=== PATIENT | male | born 1990 | race Caucasian/White ===

== ENCOUNTER 2021-02-05 11:02 | Emergency (ER) | payer OTHER ==
[~2021-02-05] VITALS: Ht 175.3 cm; Wt 77.1 kg
[~2021-02-05 11:02] MED LIST: ADDERALL; ALBU.083IS IH; ALBU90I INH; ANTIBIODIC; COUGH SYRUP; HYDACE5 PO; SUDOGEST
[2021-02-05] MEDS ORDERED: SULTRIDS PO (13:06)
== END 2021-02-05 13:17 | disposition home or self-care (01) ==
LOC: ER 11:02
DX: L02.414 Cutaneous abscess of left upper limb (principal); Z88.0 Allergy status to penicillin; Z87.891 Personal history of nicotine dependence; Z79.899 Other long term (current) drug therapy
CPT/HCPCS: 10061; 99283-25; A9270

== ENCOUNTER 2021-05-11 08:54 | Emergency (ER) | payer OTHER ==
[~2021-05-11] VITALS: Ht 175.3 cm; Wt 77.1 kg
[~2021-05-11 08:54] MED LIST changes: +SULTRIDS PO
[2021-05-11] MEDS ORDERED: Ultram50 MG PO (11:13)
== END 2021-05-11 11:24 | disposition home or self-care (01) ==
LOC: ER 08:54
DX: S20.212A Contusion of left front wall of thorax, initial encounter (principal); S90.31XA Contusion of right foot, initial encounter; Z88.0 Allergy status to penicillin; Z87.891 Personal history of nicotine dependence; Y04.2XXA Assault by strike against or bumped into by another person, initial encounter
CPT/HCPCS: 71046; 73630; 96372; 99284-25; J1885

== ENCOUNTER 2024-08-12 17:40 | Emergency (ER) | payer OTHER ==
[~2024-08-12] VITALS: Ht 177.8 cm; Wt 77.1 kg
[~2024-08-12 17:40] MED LIST changes: +Ultram50 MG PO
[2024-08-12 17:48] VITALS: BP 130/80
[2024-08-12] MEDS ORDERED: RX Prepack 6 Tabs Oxycodone 5mg UD ONE (18:55)
== END 2024-08-12 19:15 | disposition home or self-care (01) ==
LOC: ER 17:40
DX: S52.501A Unspecified fracture of the lower end of right radius, initial encounter for closed fracture (principal); S52.614A Nondisplaced fracture of right ulna styloid process, initial encounter for closed fracture; J45.909 Unspecified asthma, uncomplicated; V23.49XA Other motorcycle driver injured in collision with car, pick-up truck or van in traffic accident, initial encounter; Z87.891 Personal history of nicotine dependence; Z88.0 Allergy status to penicillin
CPT/HCPCS: 29125; 73110; 99283-25; A9270

== ENCOUNTER 2024-08-25 12:16 | Emergency (ER) | payer OTHER ==
[~2024-08-25] VITALS: Ht 177.8 cm; Wt 77.1 kg
[2024-08-25 12:28] VITALS: BP 128/76
== END 2024-08-25 14:18 | disposition left against medical advice (07) ==
LOC: ER 12:16
DX: S52.571D Other intraarticular fracture of lower end of right radius, subsequent encounter for closed fracture with routine healing (principal); X58.XXXD Exposure to other specified factors, subsequent encounter; J45.909 Unspecified asthma, uncomplicated; Z88.0 Allergy status to penicillin; Z87.891 Personal history of nicotine dependence; Z91.198 Patient's noncompliance with other medical treatment and regimen for other reason
CPT/HCPCS: 73110; 99283-25

== ENCOUNTER 2025-05-11 18:31 | Emergency (ER) | payer OTHER ==
[~2025-05-11] VITALS: Ht 175.3 cm; Wt 72.6 kg
[2025-05-11 18:40] VITALS: BP 136/85
[2025-05-11] MEDS ORDERED: Albuterol 2.5 MG/3 ML VIAL INH SCH (18:45)
[2025-05-11] MEDS ORDERED: Ipratropium Bromide INH 0.02% 0.5 mg/2.5ML Vial INH SCH (18:45)
[2025-05-11 19:44] LABS: Influenza A, PCR NEGATIVE (NEGATIVE); Influenza B, PCR NEGATIVE (NEGATIVE); Resp Syncytial Virus, PCR NEGATIVE (NEGATIVE); SARS-Cov-2 (COVID-19) PCR, MMC NEGATIVE (NEGATIVE)
== END 2025-05-11 22:49 | disposition left against medical advice (07) ==
LOC: ER 18:31
PROVIDERS: Physician Assistant
DX: R05.9 Cough, unspecified (principal); Z53.21 Procedure and treatment not carried out due to patient leaving prior to being seen by health care provider
CPT/HCPCS: 71046; 73130; 87637; 99282-25

== ENCOUNTER 2025-05-13 18:42 | Emergency (ER) | payer OTHER ==
[~2025-05-13] VITALS: Ht 175.3 cm; Wt 70.3 kg
[2025-05-13] MEDS ORDERED: Albuterol 2.5 MG/3 ML VIAL INH SCH (19:35)
[2025-05-13] MEDS ORDERED: NS 1,000 ML IV SCH (19:35)
[2025-05-13] MEDS ORDERED: Ketorolac Tromethamine 15mg Vial IV ONE (20:40)
[2025-05-13 21:00] VITALS: BP 109/67
[2025-05-13 21:00] LABS: BASOPHILS ABSOLUTE AUTO 0.01 K/mm3 (0.00-0.23); BASOPHILS PERCENT AUTO 0 % (0-2); EOSINOPHILS ABSOLUTE AUTO 0.07 K/mm3 (0.00-0.68); EOSINOPHILS PERCENT AUTO 1 % (0-6); Hematocrit 41.9 % (37.0-53.0); Hemoglobin 14.0 g/dL (13.5-17.5); IMMATURE GRAN ABSOLUTE AUTO 0.04 K/mm3 (0.00-0.10); IMMATURE GRAN PERCENT AUTO 1 % (0-1); LYMPHOCYTES ABSOLUTE AUTO 1.95 K/mm3 (0.84-5.20); LYMPHOCYTES PERCENT AUTO 25 % (21-46); MONOCYTES ABSOLUTE AUTO 0.43 K/mm3 (0.16-1.47); MONOCYTES PERCENT AUTO 6 % (4-13); Mean Corpuscular HGB Conc 33.4 g/dL (31.5-36.5); Mean Corpuscular Volume 81 fL (80-100); NEUTROPHILS ABSOLUTE AUTO 5.28 K/mm3 (1.96-9.15); NEUTROPHILS PERCENT AUTO 68 % (41-73); NRBC ABSOLUTE 0.00 K/mm3 (0.00-0.02); NRBC Auto 0.0 /100 WBC (0.0-0.2); Platelet Count 336 K/mm3 (150-400); RDW Coefficient Variation 14.6 % (11.7-14.2); RDW Standard Deviation 43.8 fL (35.1-46.3)
[2025-05-13 21:16] LABS: Alanine Aminotransfer (ALT/SGP 27.0 U/L (12-78); Albumin, Blood 2.9 g/dL (3.4-5.0); Albumin/Globulin Ratio 0.7 (0.8-1.8); Anion Gap 11.0 mmol/L (3-11); Aspartate Aminotrans (AST/SGOT 21.0 U/L (12-37); Bilirubin, Total 0.2 mg/dL (0.1-1.0); Blood Urea Nitrogen 15.0 mg/dL (8-24); CO2, Blood 25.0 mmol/L (21-32); Calcium, Blood 8.6 mg/dL (8.5-10.1); Chloride, Blood 105.0 mmol/L (98-108); Creatinine, Blood 1.11 mg/dL (0.60-1.20); Globulin, Blood 4.1 g/dL (2.2-4.0); Glucose, Blood 115.0 mg/dL (70-99); Potassium, Blood 3.6 mmol/L (3.5-5.5); Sodium, Blood 137.0 mmol/L (136-145); Total Protein, Blood 7.0 g/dL (6.4-8.2)
[2025-05-13] MEDS ORDERED: RX Prepack Albuterol 1 PREPACK/6.7 GM INH UD ONE (21:35)
[2025-05-13] MEDS ORDERED: IBUP400 PO (22:07)
== END 2025-05-13 22:12 | disposition home or self-care (01) ==
LOC: ER 18:42
PROVIDERS: Student in an Organized Health Care Education/Training Program
DX: S62.336A Displaced fracture of neck of fifth metacarpal bone, right hand, initial encounter for closed fracture (principal); J45.901 Unspecified asthma with (acute) exacerbation; X58.XXXA Exposure to other specified factors, initial encounter; Z88.0 Allergy status to penicillin; Z87.891 Personal history of nicotine dependence
CPT/HCPCS: 29125; 80053; 85025; 96361; 96374-59; 99283-25; A9270; J1885; J7030

== ENCOUNTER 2025-05-22 14:51 | Emergency (ER) | payer OTHER ==
[~2025-05-22] VITALS: Ht 175.3 cm; Wt 72.6 kg
[~2025-05-22 14:51] MED LIST changes: +IBUP400 PO
[2025-05-22 14:55] VITALS: BP 122/78
[2025-05-22] MEDS ORDERED: Ketorolac Tromethamine 15mg Vial IM ONE (15:50)
[2025-05-22] MEDS ORDERED: AZIT250 PO (16:56)
[2025-05-22] MEDS ORDERED: LORCET PLUS PO (16:56)
[2025-05-22] MEDS ORDERED: IBUP800 PO (16:56)
== END 2025-05-22 17:09 | disposition home or self-care (01) ==
LOC: ER 14:51
DX: S62.112A Displaced fracture of triquetrum [cuneiform] bone, left wrist, initial encounter for closed fracture (principal); S62.142A Displaced fracture of body of hamate [unciform] bone, left wrist, initial encounter for closed fracture; Z88.0 Allergy status to penicillin; J45.909 Unspecified asthma, uncomplicated; Z59.89 Other problems related to housing and economic circumstances; V19.9XXA Pedal cyclist (driver) (passenger) injured in unspecified traffic accident, initial encounter
CPT/HCPCS: 73110; 73200; 96372; 99283-25; A9270; J1885